=== PATIENT | male | born 1970 | race Hispanic/Latino ===

== ENCOUNTER 2019-10-22 | Emergency (ER) | payer SELFPAY ==
[2019-10-22] MEDS ORDERED: KEFLEX500 M1 PO (20:59)
[2019-10-22] MEDS ORDERED: ZITHROMAX500 MG PO (20:59)
[2019-10-22] MEDS ORDERED: TESSALON PER100 MG PO (20:59)
== END 2019-10-22 21:11 | disposition home or self-care (01) | DRG 195 ==
DX: J18.9 Pneumonia, unspecified organism (principal); J02.0 Streptococcal pharyngitis